=== PATIENT | male | born 1955 | race Caucasian/White ===

== ENCOUNTER 2020-09-30 09:57 | Outpatient (CLI) | payer OTHER, SELFPAY ==
[2020-09-30 10:58] LABS: Basophils Percent Auto 0.4 % (0.2-1.2); Eosinophils Absolute Auto 0.1 K/mm3 (0-0.3); Eosinophils Percent Auto 1.2 % (0-4.4); Hematocrit 46.6 % (42.0-52.0); Hemoglobin 15.3 g/dL (14.0-18.0); Immature Granulocyte Absolute 0.04 K/mm3 (0.00-0.031); Immature Granulocyte Percent A 0.5 % (0-0.5); Lymphocytes Absolute Auto 2.11 K/mm3 (0.9-3.2); Lymphocytes Percent Auto 27.8 % (18.3-44.2); Mean Corpuscular HGB Conc 32.8 g/dl (32-36); Mean Corpuscular Hemoglobin 30.3 pg (26-34); Mean Corpuscular Volume 92.3 fl (80-100); Mean Platelet Volume 9.7 fl (7.4-10.4); Monocytes Absolute Auto 0.8 K/mm3 (0.1-0.6); Monocytes Percent Auto 9.9 % (2.6-8.5); Neutrophils Absolute Auto 4.6 K/mm3 (1.3-6.7); Neutrophils Percent Auto 60.2 % (45.5-73.1); Platelet Count Result 237 k/mm3 (150-375); Red Blood Count 5.05 M/mm3 (4.6-6.20); Red Cell Distribution Width 12.6 % (11.5-14.5); White Blood Count 7.6 K/mm3 (4.5-10.0)
[2020-09-30 11:09] LABS: Albumin Level 4.6 g/dL (3.5-5.1); Anion Gap 8 mmol/L (8-16); Blood Urea Nitrogen 18 mg/dL (9-20); Calcium 9.7 mg/dL (8.4-10.2); Carbon Dioxide 27 mmol/L (22-30); Chloride 104 mmol/L (98-107); Estimated Glomerular Filt Rate > 60; Glucose 90 mg/dL (65-110); Potassium 4.8 mmol/L (3.4-5.0); Sodium 139 mmol/L (137-145)
[2020-09-30 11:22] LABS: Urine Cotinine NEGATIVE
[2020-09-30 12:43] LABS: Hemoglobin A1C 6.1 % (<5.7)
== END 2020-09-30 09:58 | disposition home or self-care (01) ==
PROVIDERS: PCP Family Medicine; Visit Provider Orthopaedic Surgery
DX: M17.11 Unilateral primary osteoarthritis, right knee (principal); Z01.818 Encounter for other preprocedural examination
CPT/HCPCS: 80048; 80307; 82040; 83036; 85025; 87070

== ENCOUNTER 2020-10-18 01:51 | Day surgery (SDC) | payer OTHER, SELFPAY ==
[2020-09-30 10:20] VITALS: BP 138/64; PULSE 62; RESP 20; TEMP 36.8; O2SAT 97; BMI 33.8
--- NOTE | 2020-10-15 11:42 | PM.IMHP ---
H&P: HPI History of Present Illness Date/Time: 10/15/20 11:42 65-year-old male patient of Dr. Paulino who presents today for a right total knee arthroplasty. Patient had his left knee replaced in 2010 and is doing very well for him. He has severe medial compartment arthritis in the right knee that is severely symptomatic on a daily basis. He is unable take anti-inflammatories because he also on Eliquis long-term for AFib. Patient has reached a point where he feels he would like to proceed with total knee arthroplasty rather continue any nonsurgical treatment of right knee. Chief Complaint: right knee DJD Review of Systems Review of Systems: All systems reviewed & are unremarkable except as noted in HPI and below PMFSH Family History Family History Mother Cerebrovascular accident Father Acute myocardial infarction Family history of chronic obstructive pulmonary disease Grandparent Cerebrovascular accident, Onset Age: 54 Sibling Family history of malignant neoplasm of ovary, Onset Age: 54 Other No family history of diabetes mellitus No family history of hypertension No family history of malignant neoplasm Social History Social History Smoking status: Never smoker Second hand tobacco smoke exposure: No Alcohol intake: never Substance use: never Substance use type: does not use Spiritual care concerns: No Meds Home Medications and Allergies Home Medications Medication Instructions Recorded Confirmed Type apixaban 5 mg tablet 5 mg PO BID #180 tablet 09/08/19 09/30/20 Rx atorvastatin 20 mg HS 09/30/20 09/30/20 History diltiazem HCl [Cartia XT] 180 mg QAM 09/30/20 09/30/20 History garlic 2,000 mg PO BID 09/30/20 09/30/20 History lisinopril 2.5 mg BID 09/30/20 09/30/20 History Allergies Allergy/AdvReac Type Severity Reaction Status Date / Time ezetimibe Allergy Unknown joint and Verified 09/30/20 10:14 muscle aches fexofenadine Allergy Unknown Hyper Verified 09/30/20 10:14 rosuvastatin Allergy Unknown Muscle Verified 09/30/20 10:14 aches simvastatin [Vytorin] Allergy Unknown joint and Verified 09/30/20 10:14 muscle aches Sulfa (Sulfonamide Allergy Unknown blister in Verified 09/30/20 10:14 Antibiotics) mouth SULFA AdvReac Unknown FLU SX AND Uncoded 09/30/20 10:14 FEVER BLISTERS Exam Narrative: 65-year-old male alert pleasant. He is 5 ft 8 and 229 lb. He has a moderate effusion right knee. Range of motion is from 10-90 degrees. He has posterior lateral pain with full flexion. He has moderate medial joint line tenderness to palpation. No instability in the knee. Hip range of motion is full without discomfort, negative Stinchfield maneuver. 2+ posterior tibial artery pulse. No dorsalis pedis pulse. No edema in the right lower extremity with normal sensation. Skin is all healthy. He has a visible varus deformity in the knee. Resp: Auscultation: clear to auscultation bilaterally Cardio: Rate: other Rhythm: regular rhythm Assessment and Plan Additional Plan 65-year-old male with [id number] arthritis in medial compartment of the right knee with rather severe symptoms on a daily basis. Again he is very happy with his left total knee arthroplasty and feels he is ready proceed with the right. Surgical procedure as well as the risks and complications were discussed in detail and all questions were answered we will proceed. He will see his primary care doctor pre-surgical clearance he has also seen his new patient escort and has been evaluated cleared for surgery without additional testing. He will stop his Eliquis 3 days prior to surgery. We will plan use low-dose Eliquis for 7 days postoperatively and then have the patient resume his normal dosing. His nasal swab was negative. Hemoglobin 15.3 and platelets 237. Chem panel creatinine is 1.
[2020-10-18] VITALS (15 sets, daily range): BP systolic 105–144; BP diastolic 57–82; PULSE 78–106; RESP 10–22; TEMP 36.2–37.2; O2SAT 93–100
--- NOTE | ~2020-10-18 | XR_ITS ---
EXAMINATION: XR knee RT 2V DATE: 10/18/2020 11:01 INDICATION: Total right knee arthroplasty. Postop. TECHNIQUE: 2 views of right knee were obtained. COMPARISON: None. FINDINGS: There is a total right knee arthroplasty with patellar resurfacing in near-anatomic alignme nt. No fracture. There is gas in the knee joint and soft tissues, consistent with recent surgery. IMPRESSION: 1. Total right knee arthroplasty in near-anatomic alignment. Reviewed, dictated and finalized at location B.
[2020-10-18] MEDS: ACETAMINOPHEN 500 MG TABLET 1000 MG PO ×3 (06:42→23:21)
[2020-10-18] MEDS: TRANEXAMIC ACID 1,000MG/ISO100 1,000 MG/100 ML BAG 200 MG IVPB (06:45)
--- NOTE | 2020-10-18 06:51 | P.PNAN_ITS ---
Anes - Initial Pre Proc Eval Procedure: Operation Date: 10/18/20 07:30 Proposed Procedures p Right Total Knee Arthroplasty - Maged Molina MD Date/Time: 10/18/20 06:52 Surgeon: Maged Molina MD Pre Op Diagnosis: OA right knee Patient Data Age: 65 Gender: M Height: 1.75 m Weight: 103.9 kg Last Vital Signs Temp 36.8 C 09/30/20 10:20 Pulse 62 09/30/20 10:20 Resp 20 09/30/20 10:20 BP 138/64 09/30/20 10:20 Pulse Ox 97 09/30/20 10:20 Allergies Allergy/AdvReac Type Severity Reaction Status Date / Time ezetimibe Allergy Unknown joint and Verified 09/30/20 10:14 muscle aches fexofenadine Allergy Unknown Hyper Verified 09/30/20 10:14 rosuvastatin Allergy Unknown Muscle Verified 09/30/20 10:14 aches simvastatin [Vytorin] Allergy Unknown joint and Verified 09/30/20 10:14 muscle aches Sulfa (Sulfonamide Allergy Unknown blister in Verified 09/30/20 10:14 Antibiotics) mouth SULFA AdvReac Unknown FLU SX AND Uncoded 09/30/20 10:14 FEVER BLISTERS Home Medications Medication Instructions Recorded Confirmed Type apixaban 5 mg tablet 5 mg PO BID #180 tablet 09/08/19 09/30/20 Rx atorvastatin 20 mg HS 09/30/20 09/30/20 History diltiazem HCl [Cartia XT] 180 mg QAM 09/30/20 09/30/20 History garlic 2,000 mg PO BID 09/30/20 09/30/20 History lisinopril 2.5 mg BID 09/30/20 09/30/20 History Patient hx anesthesia problems: none Family hx anesthesia problems: none PMFSH Past Medical History Medical History (Updated 10/18/20 @ 06:54 by Sukh Deleon MD) Calculus of kidney Essential (primary) hypertension Impaired fasting glucose Mixed hyperlipidemia Neural foraminal stenosis of cervical spine Obstructive sleep apnea, adult Unspecified atrial fibrillation Family History Family History Mother Cerebrovascular accident Father Acute myocardial infarction Family history of chronic obstructive pulmonary disease Grandparent Cerebrovascular accident, Onset Age: 54 Sibling Family history of malignant neoplasm of ovary, Onset Age: 54 Other No family history of diabetes mellitus No family history of hypertension No family history of malignant neoplasm Social History Social History Smoking status: Never smoker Second hand tobacco smoke exposure: No Alcohol intake: never Substance use: never Substance use type: does not use Living arrangements: with family Spiritual care concerns: No Anes - Eval Final PreProcedure Day of Procedure 10/18/20 06:52 Patient weight: obese Heart: regular rate and rhythm Lungs: clear to auscultation and normal air movement Airway: Mallampati scale class II Neurological: alert and oriented Last oral intake: >/= 8 hours ASA classification: III Emergent: no Anesthetic plan: proceed Anesthesia type and monitoring: general ETT Informed Consent: The patient's anesthetic plan and its attendant risks and benefits were discussed with the patient/family/POA. Questions were solicited and answers provided to the satisfaction of the patient/family/POA.
[2020-10-18] MEDS: LACTATED RINGERS 1,000 ML 30 ML IV CONT ×2 (06:54→11:05)
--- NOTE | 2020-10-18 07:17 | WPDHPUPDATE1 ---
History and Physical Update Update Date/Time: 10/18/20 07:17 History and Physical has been reviewed, including an updated exam of the patient. There are NO changes in the patient's condition. Risks, benefits, and alternatives have been discussed and questions answered. Patient agrees to proceed with procedure.
[2020-10-18] MEDS: ceFAZolin 2 GM/D5W 50 ML 2 GM/50 ML BAG IVPB (07:41)
[2020-10-18] MEDS: ceFAZolin SODIUM 1 GM VIAL 3 GM IRRIGATION (08:21)
[2020-10-18] MEDS: GENTAMICIN BONE CEMENT REFOBACIN 1 EACH TOPICAL (09:30)
[2020-10-18] MEDS: ceFAZolin SODIUM 1 GM VIAL IV PUSH (10:11)
--- NOTE | 2020-10-18 11:16 | W.PM.PROC2 ---
Procedure Note - Detailed Date of Procedure 10/18/20 Pre-op Diagnosis OA right knee Post-op Diagnosis same Procedure Performed Right total knee arthroplasty Surgeon Maged Molina MD Counter Hand Gabby Anesthesia general Indications Pain, deformity, stiffness Findings Same Description of Procedure Patient was brought to the operating room and general anesthesia was administered the right knee prepped draped usual fashion. Limb was exsanguinated tourniquet elevated to 275 mmHg. He received 2 g of Ancef weight based vancomycin 1 g of tranexamic is acid preoperatively. An 8 in longitudinal midline incision was used and a standard median parapatellar arthrotomy performed. Infrapatellar and suprapatellar fat pads were excised acquire some synovectomy carried out. The patella was arthritic. It measured 27 mm in thickness and was cut to 18 mm. A protector cap was applied the bone. Mild osteopenia noted. A guide sunny was inserted down the femoral canal after aspiration of canal contents and using the 5 degree valgus cutting bushing 9 mm of bone removed the distal femur was removed equal amounts both medially and laterally. Next the tibial plateau was cut making a skim cut from the low point of medial tibial plateau. This 1st cut removed about 10 a 0.5 mm from the lateral side as that did not reach the posterior medial defect satisfactorily. An additional 2 mm of bone removed. We took care not to release the lateral capsule from the lateral tibial plateau. In 90 degrees of flexion the medial side measured 10 mm the lateral side 14 mm. The femoral sizing guide was applied set at 5? of external rotation which matched Whitesides line. Posterior referencing pin holes were placed. The femur was cut to a size vanguard 70 which fit nicely line to line anterior to posterior with no overhang medial to lateral. The tibia was sized to a 75 period at the proper rotation the size 79 was going to overhang posterolaterally. The 75 was punched. Rotation was set referenced off the medial 1/3 of the tibial tubercle and the anterior cortex of the tibial plateau. Alignment was perpendicular to the axis of the tibia. We trialed and the size 12 insert him out to full extension with a negative bounce no plate medially but was a bit loose at 90?. The 13 was appropriate at 90? but had a bounce lacking full extension. An additional 1 mm of bone was removed the distal femur. Posterior femoral osteophytes removed. With this done the knee came out to full extension with a 13 insert with 1 mm medial opening and 2 mm of lateral opening in full extension. At 90? of flexion there was about 3 mm the in interior drawer with no medial opening and 1-2 mm of lateral opening. [place] flexion was to 135? no lift-off. The patella was sized to a 37 thin which reproduced the 27 mm thickness. Patellar tracking was excellent through range of motion even with the tourniquet elevated. Step drill was used to make multiple perforations in the tibial plateau and distal posterior femur. The bone was a little bit softer than what 1 usually sees in a 65-year-old male. The bony surfaces were thoroughly irrigated and dried. Using 2 batches of methylmethacrylate 1 containing the gentamicin powder, the cement was mixed applied to the tibial component and the femoral component cement applied the tibia pressurized and the size 75 tibia fully seated. Cement applied the femur and the size 70 femur fully seated and the knee brought into extension with a 13 mm 5 in 1 insert. The patellar button was then cemented. Tourniquet was released 115 minutes. Excess cement was sought for removed after cement hardening and hemostasis was achieved. We trialed with a 13 which had the same findings as above. Fourteen was inserted but was too tight with squeaking tightness with attempts at anterior drawer medially. The 13 insert was placed without difficulty and locking pin placed range of motion stability and p
[2020-10-18] MEDS: fentaNYL CITRATE INJ (*CRX) 100 MCG/2 ML VIAL 25 MCG IV PUSH ×4 (11:41→11:51)
[2020-10-18] MEDS: SODIUM CHLORIDE 0.9% IV 1,000 ML 125 ML IV CONT ×2 (12:54→23:20)
[2020-10-18] MEDS: oxyCODONE HCL (*CRX) 5 MG TAB IR PO ×3 (13:18→20:59)
--- NOTE | 2020-10-18 13:32 | PCOTNOTE ---
Attempted OT evaluation, completed prior level questions and bed mobility of sitting edge of bed, patient became dizzy and light headed and requested to return back to bed, assisted patient back to bed, unable to complete OT evaluation at this time. RN notified. Will follow and complete OT evaluation at later time.
--- NOTE | 2020-10-18 13:32 | PCPTNOTE ---
Attempted PT Eval. Pt reports he is nauseated and dizzy. Will attempt eval again tomorrow.
--- NOTE | 2020-10-18 15:11 | PM.IMCN ---
Assessment and Plan Assessment and plan (1) Obstructive sleep apnea, adult: Code(s): G47.33 - Obstructive sleep apnea (adult) (pediatric) Status: Acute Assessment and Plan: patient can use his home device or wear O2 NC as needed overnight VS monitoring Supportive monitoring (2) Atrial fibrillation: Code(s): I48.91 - Unspecified atrial fibrillation Status: Acute Assessment and Plan: Controlled at this time with HR 80-90s. No chest pain or SOB Ortho surgeon aware of patient Cardiac history and current meds, providing DVT propylaxis as such. Continue statin, Cartia, lisinopril. VS monitoring Supportive monitoring (3) Status post total right knee replacement: Code(s): Z96.651 - Presence of right artificial knee joint Status: Acute Assessment and Plan: 65-year-old male with [id number] arthritis in medial compartment of the right knee with rather severe symptoms on a daily basis. history of left total knee arthroplasty and no complications or concerns now. had pre-surgical clearance and childcare director clearance. Held Eliquis 3 days prior to surgery. Ortho plans use low-dose Eliquis for 7 days postoperatively and then have the patient resume his normal Eliquis dosing. nasal swab was negative. Hemoglobin 15.3 and platelets 237. Chem panel creatinine is 1.1 rest of Chem panel was within normal limits. (4) Elevated hemoglobin A1c: Code(s): R73.09 - Other abnormal glucose Status: Acute Assessment and Plan: his A1C recently went up from 5.7 to 6.1 when tested in September 2020. no diabetes medications at home, understands that his glucose levels can be improved through dietary changes. No SSI orders at this time, as his glucose level was 90 at testing last month in September. Will evaluate his glucose level with morning labs on BMP. Currently on regular diet, but if glucose levels elevate, then consider switching to Diabetic Diet. Keep glucose levels well controlled for best wound and surgical healing. Additional Plan HPI Data of Consult Consult date: 10/18/20 Requesting Physician: Maged Molina MD Primary Care Provider: Tuan Paulino MD Consult Narrative Narrative: Agustín Rosado is a 65 year old male who presented today for a pre-planned right total knee arthroplasty by Dr. Molina. His left knee was replaced in 2010 and he denies any complaints. His surgery went well this morning with minimal to no blood loss. He is tolerating orals and tolerated liquid diet for breakfast and lunch. Denies Nausea or vomiting. Denies chest pain, SOB, abdominal pain or pressure at this time. Extremity pulses intact. Pain is currently controlled with pain regime that Ortho surgeon has in place. Prior to today's procedure, Agustín did hold his garlic supplements and Eliquis per Orthopedic surgeons instructions. No s/s of bleeding per examination of wound at this time. The Silvadene OR dressing remains occlusive, no drainage or bleeding noted, minimal swelling noted, and no redness noted. Agustín had a recent ECHO and follow up visit with his Race Relations Professor in the last 2-3 months, had no new findings or concerns. He has chronic AFib but doesn't know or feel it per patient report. His HR has been 87-94 on vital signs, BP 135/72, and RR 16 on room air. Continue Incentive Spirometer. Ordered Strict I/O's. He stated that his A1C recently went up from 5.7 to 6.1 when tested in September 2020. He does not take any diabetes medications at home, but understands that his glucose levels can be improved through dietary changes. No SSI orders at this time, as his glucose level was 90 at testing last month in September. Will evaluate his glucose level with morning labs on BMP. Currently on regular diet, but if glucose levels elevate, then consider switching to Diabetic Diet. Discussed his chronic back pain history over recent years. Offered patient frequent repositioning, heating pad, and pain medications or
[2020-10-18] MEDS: ONDANSETRON INJ 4 MG/2 ML VIAL IV PUSH (17:17)
[2020-10-18] MEDS: SENNA/DOCUSATE SODIUM TABLET 2 TAB PO (17:26)
[2020-10-18] MEDS: APIXABAN 2.5 MG TABLET PO (20:59)
[2020-10-18] MEDS: ATORVASTATIN 20 MG TABLET BY MOUTH (20:59)
[2020-10-18] MEDS: FAMOTIDINE 20 MG TABLET PO (20:59)
[2020-10-19] VITALS: PULSE 88
[2020-10-19] MEDS: oxyCODONE HCL (*CRX) 5 MG TAB IR PO ×4 (00:33→14:29)
[2020-10-19 00:42] VITALS: BP 104/58; PULSE 78; RESP 16; TEMP 37.2; O2SAT 98
[2020-10-19 04:00] VITALS: PULSE 65
[2020-10-19] MEDS: ACETAMINOPHEN 500 MG TABLET 1000 MG PO ×2 (05:18→14:29)
[2020-10-19 05:46] LABS: Basophils Percent Auto 0.2 % (0.2-1.2); Hematocrit 36.3 % (42.0-52.0); Hemoglobin 11.6 g/dL (14.0-18.0); Immature Granulocyte Percent A 0.8 % (0-0.5); Lymphocytes Absolute Auto 0.93 K/mm3 (0.9-3.2); Lymphocytes Percent Auto 7.2 % (18.3-44.2); Mean Corpuscular Hemoglobin 30.4 pg (26-34); Mean Corpuscular Volume 95.3 fl (80-100); Mean Platelet Volume 9.9 fl (7.4-10.4); Monocytes Absolute Auto 1.2 K/mm3 (0.1-0.6); Neutrophils Absolute Auto 10.6 K/mm3 (1.3-6.7); Neutrophils Percent Auto 82.8 % (45.5-73.1); Platelet Count Result 220 k/mm3 (150-375); Red Blood Count 3.81 M/mm3 (4.6-6.20); White Blood Count 12.8 K/mm3 (4.5-10.0)
[2020-10-19 05:58] LABS: Anion Gap 7 mmol/L (8-16); Blood Urea Nitrogen 18 mg/dL (9-20); Calcium 8.3 mg/dL (8.4-10.2); Carbon Dioxide 23 mmol/L (22-30); Chloride 104 mmol/L (98-107); Estimated CRCL calculation 72 ml/min; Estimated Glomerular Filt Rate > 60; Glucose 117 mg/dL (65-110); Potassium 4.7 mmol/L (3.4-5.0); Sodium 134 mmol/L (137-145)
[2020-10-19 06:00] VITALS: BP 112/60; PULSE 77; RESP 18; TEMP 36.8; O2SAT 99
--- NOTE | 2020-10-19 06:24 | PM.PNORT ---
Progress Note: A&P Additional Plan Postop day 1, patient is alert awake. Pain is overall well controlled. He has been bed to the restroom overnight. He did not work with physical therapy yesterday due to nausea following general anesthesia. He is feeling much better this morning having no nausea. His dressing is dry. Neurovascular is intact. Has minimal swelling in the knee itself. His labs are all stable and noted. We will plan to have patient work with physical therapy this morning and he is comfortable is overall asymptomatic from the nausea as well as pain being well controlled we will discharge him home. If he does not feel he is doing well with physical therapy after morning session he will stick around into the afternoon session. Subjective Subjective Date/Time Seen: 10/19/20 06:24 Objective Data Vital Signs Vital Signs: Vital Signs - 24 hr 10/18/20 06:30 10/18/20 11:05 10/18/20 11:20 Temperature 36.7 C 37.2 C Pulse Rate 79 78 88 Respiratory Rate 18 22 H 22 H Blood Pressure 140/82 105/59 L 123/60 Pulse Oximetry 100 99 100 10/18/20 11:35 10/18/20 11:50 10/18/20 12:05 Temperature 36.4 C L Pulse Rate 89 84 90 Respiratory Rate 16 16 10 L Blood Pressure 129/64 120/74 123/77 Pulse Oximetry 100 96 98 10/18/20 12:20 10/18/20 12:45 10/18/20 13:00 Temperature 36.4 C L 36.2 C L 36.5 C Pulse Rate 86 88 87 Respiratory Rate 11 L 14 14 Blood Pressure 131/66 144/65 H 139/65 Pulse Oximetry 97 96 94 10/18/20 13:30 10/18/20 14:30 10/18/20 16:00 Temperature 36.2 C L 36.6 C Pulse Rate 83 94 106 H Respiratory Rate 14 16 Blood Pressure 129/69 135/72 Pulse Oximetry 93 96 10/18/20 18:30 10/18/20 20:00 10/18/20 22:00 Temperature 36.5 C 36.9 C Pulse Rate 87 78 78 Respiratory Rate 14 18 Blood Pressure 121/57 L 107/61 Pulse Oximetry 93 98 10/19/20 00:00 10/19/20 00:42 10/19/20 04:00 Temperature 37.2 C Pulse Rate 88 78 65 Respiratory Rate 16 Blood Pressure 104/58 L Pulse Oximetry 98 Intake/Output Intake/Output: Intake & Output 10/16/20 10/17/20 10/18/20 10/19/20 23:59 23:59 23:59 23:59 Intake Total 2800 Balance 2800 Meds/Results Medications: Active Medications Generic Name Dose Route Start Last Admin Trade Name Freq PRN Reason Stop Dose Admin Acetaminophen 1,000 mg 10/18/20 18:00 10/19/20 05:18 Acetaminophen 500 Mg Tablet PO 1,000 mg Q6H WILY Administration Apixaban 2.5 mg 10/18/20 21:00 10/18/20 20:59 Apixaban 2.5 Mg Tablet PO 10/30/20 09:01 2.5 mg Q12HR WILY Administration Atorvastatin Calcium 20 mg 10/18/20 21:00 10/18/20 20:59 Atorvastatin 20 Mg Tablet BY MOUTH 20 mg HS WILY Administration Bisacodyl 10 mg 10/18/20 12:29 Bisacodyl 10 Mg Suppository RECTAL DAILY PRN Constipation Diltiazem HCl 180 mg 10/19/20 09:00 Diltiazem Hcl Cd 180 Mg Cap.Er.24h PO QAM WILY Diphenhydramine HCl 25 mg 10/18/20 12:29 Diphenhydramine Hcl Inj 50 Mg/Ml Vial IV PUSH Q6H PRN Itching Famotidine 20 mg 10/18/20 21:00 10/18/20 20:59 Famotidine 20 Mg Tablet PO 20 mg Q12HR WILY Administration Vancomycin HCl 1,000 mg in 250 mls @ 250 mls/hr 10/18/20 19:00 10/18/20 19:43 Vancomycin 1,000 Mg/D5w 250 Ml IVPB 10/19/20 07:59 Infused Q12H WILY Infusion Cefazolin Sodium 1 gm in 50 mls @ 100 mls/hr 10/18/20 16:00 10/18/20 23:53 Ancef 1 Gm/D5w 50 Ml Pm IVPB 10/19/20 08:29 Infused Q8H WILY Infusion Morphine Sulfate 2 mg 10/18/20 12:29 Morphine Sulfate (*Crx) 2 Mg/Ml Inj IV PUSH Q4H PRN Pain Rated 7-10 Naloxone HCl 0.1 mg 10/18/20 12:29 Naloxone Hcl 0.4 Mg/Ml Vial IV PUSH Q2M PRN Opiate Reversal Ondansetron HCl 4 mg 10/18/20 12:29 10/18/20 17:17 Ondansetron Inj 4 Mg/2 Ml Vial IV PUSH 4 mg Q4H PRN Administration Nausea And Vomiting Oxycodone HCl 5 mg 10/18/20 13:00 10/19/20 05:18 Oxycodone Hcl (*Crx) 5 Mg Tab Ir PO 5 mg Q4H SC
--- NOTE | 2020-10-19 06:30 | PM.DS ---
DS: Admitting Diagnosis Admitting Diagnosis right knee DJD DS: Summary Hospital Course Hospital Course: stable Time Spent with Patient Time attestation: Total time spent providing and/or coordinating discharge services: 64-year-old male who underwent right total knee arthroplasty on 10/18. Under procedure and complications postop he has been afebrile vital signs been stable. He had quite a bit of nausea the day of surgery and was unable to work with physical therapy. Nausea has subsequently passed. Postop day 1 morning he was feeling good having no nausea. Hemoglobin is 11.6 and platelets 220. He is on low-dose Eliquis 2.5 mg b.i.d. for 1 week and then resume his normal Eliquis dosing of 5 mg. Pain is well controlled with scheduled Tylenol as well as oxycodone 5 mg. He is allergic to sulfa therefore not using Celebrex on him. He is weight-bearing as tolerated. He will be discharged home on 10/19 patient was advised to keep leg elevated at home prevent swelling but to exercise on a regular basis. He will also go home on Senokot and MiraLax. His outpatient therapy starting later this week. He was advised any questions or concerns when he goes home he is to call the office otherwise we will see him at this appointed dates DS: Data Data Completed and Pending Labs on day of discharge: Labs from last 24 hours 10/19/20 10/19/20 10/19/20 04:45 04:44 04:44 WBC 12.8 H RBC 3.81 L Hgb 11.6 L D Hct 36.3 L MCV 95.3 MCH 30.4 MCHC 32.0 RDW 13.0 Plt Count 220 MPV 9.9 Immature Gran % (Auto) 0.8 H Neut % (Auto) 82.8 H Lymph % (Auto) 7.2 L Nelson % (Auto) 9.0 H Eos % (Auto) 0.0 Baso % (Auto) 0.2 Lymph # (Auto) 0.93 Nelson # (Auto) 1.2 H Eos # (Auto) 0.0 Baso # (Auto) 0.0 Abs Immat Gran (auto) 0.10 H Absolute Neuts (auto) 10.6 H Absolute Nucleated RBC 0.0 Nucleated RBC % 0.0 Sodium 134 L Potassium 4.7 Chloride 104 Carbon Dioxide 23 Anion Gap 7 L BUN 18 Creatinine 1.10 Estim Creat Clear Calc 72 Estimated GFR > 60 Glucose 117 H Calcium 8.3 L Vitamin D 25-Hydroxy Pending Blood Type Antibody Screen 10/18/20 06:59 WBC RBC Hgb Hct MCV MCH MCHC RDW Plt Count MPV Immature Gran % (Auto) Neut % (Auto) Lymph % (Auto) Nelson % (Auto) Eos % (Auto) Baso % (Auto) Lymph # (Auto) Nelson # (Auto) Eos # (Auto) Baso # (Auto) Abs Immat Gran (auto) Absolute Neuts (auto) Absolute Nucleated RBC Nucleated RBC % Sodium Potassium Chloride Carbon Dioxide Anion Gap BUN Creatinine Estim Creat Clear Calc Estimated GFR Glucose Calcium Vitamin D 25-Hydroxy Blood Type A Positive Antibody Screen Negative Discharge Plan Discharge Patient Disposition: Home, Self-Care Discharge Instructions: MAGED MOLINA M.D [facility], [place] [address] [place] [address] POST-OPERATIVE DISCHARGE INSTRUCTIONS TOTAL KNEE ARTHROPLASTY 1. When resting, lie on back with leg elevated above hear to minimize swelling. Significant swelling could indicate a blood clot and if this occurs call the office (or go to the ER) to have a venous ultrasound. 2. Do exercise 5 times a day. 3. Do not sit with leg down except for meals. 4. Wound Care: Nursing will give additional dressings at discharge. Patient to change dressing at home 1 week from surgery, then maintain until seen in office. 5. May shower with dressing in place. 6. Follow weight bearing status instructions. Patient Instructions: Apixaban (By mouth), Precautions after Total Joint Replacement Surgery (ED) Follow-up/Referrals: Maged Molina MD [Physician] - Keep Reg. Scheduled Appt. Discharge Medications: New polyethylene glycol 3350 [Miralax] 17 gram Powder In Packet 17 g PO QAM Qty: 30 RF: 0 sennosides-docusate sodium [Senokot-S] 8.6-50 mg Tablet
[2020-10-19 07:07] LABS: Vitamin D 25 Hydroxy 26.1 ng/mL
--- NOTE | 2020-10-19 08:00 | PCOTNOTE ---
Attempted to see patient this am, however patient respectfully declined stating, No, I'm good. I've had a knee replacement before. I already have some shorts on, and until I get rid of all this stuff. I know how to use the walker, so I'm good.
--- NOTE | 2020-10-19 08:24 | P.PNAN_ITS ---
Anes - Prog Note Post-Op Date/Time: 10/19/20 08:24 Cardiovascular status: normal Respiratory status: normal Airway patency: baseline Mental status: baseline Post-Op hydration status: normal Vital Signs: Last Vital Signs Temp 36.8 C 10/19/20 06:00 Pulse 77 10/19/20 06:00 Resp 18 10/19/20 06:00 BP 112/60 10/19/20 06:00 Pulse Ox 99 10/19/20 06:00 Pain Score (VAS): 0 I/O: Intake & Output 10/18/20 10/19/20 10/19/20 23:59 07:59 15:59 Intake Total 1590 300 Output Total 600 Balance 1590 -300 Laboratory Tests 10/19/20 04:44 10/19/20 04:45 10/19/20 10/19/20 10/19/20 04:44 04:44 04:45 WBC 12.8 H RBC 3.81 L Hgb 11.6 L D Hct 36.3 L MCV 95.3 MCH 30.4 MCHC 32.0 RDW 13.0 Plt Count 220 MPV 9.9 Immature Gran % (Auto) 0.8 H Neut % (Auto) 82.8 H Lymph % (Auto) 7.2 L [place] % (Auto) 9.0 H Eos % (Auto) 0.0 Baso % (Auto) 0.2 Lymph # (Auto) 0.93 [place] # (Auto) 1.2 H Eos # (Auto) 0.0 Baso # (Auto) 0.0 Abs Immat Gran (auto) 0.10 H Absolute Neuts (auto) 10.6 H Absolute Nucleated RBC 0.0 Nucleated RBC % 0.0 Sodium 134 L Potassium 4.7 Chloride 104 Carbon Dioxide 23 Anion Gap 7 L BUN 18 Creatinine 1.10 Estim Creat Clear Calc 72 Estimated GFR > 60 Glucose 117 H Calcium 8.3 L Vitamin D 25-Hydroxy 26.1 Post-procedural complaints: none Patient Feedback: Patient satisfied with anesthetic care.
[2020-10-19] MEDS: SENNA/DOCUSATE SODIUM TABLET 2 TAB PO (09:51)
[2020-10-19] MEDS: FAMOTIDINE 20 MG TABLET PO (09:52)
[2020-10-19] MEDS: dilTIAZem HCL CD 180 MG CAP.ER.24H PO (09:52)
[2020-10-19] MEDS: APIXABAN 2.5 MG TABLET PO (09:52)
[2020-10-19 10:30] VITALS: BP 107/64; PULSE 68; RESP 16; TEMP 36.9; O2SAT 95
--- NOTE | 2020-10-19 11:06 | PM.IMPN ---
Progress Note: A&P Assessment and Plan (1) Status post total right knee replacement: Code(s): Z96.651 - Presence of right artificial knee joint Status: Acute Assessment and Plan: Underwent right total knee arthroplasty on 10/18/[address] Molina. Tolerated the procedure well. Pain is well controlled. Management per Orthopedic surgery Planning for discharge today. Follow-up with Orthopedic surgery as an outpatient (2) Obstructive sleep apnea, adult: Code(s): G47.33 - Obstructive sleep apnea (adult) (pediatric) Status: Acute Assessment and Plan: Continue with CPAP (3) Atrial fibrillation: Code(s): I48.91 - Unspecified atrial fibrillation Status: Acute Assessment and Plan: Rate is well controlled Continue Eliquis. Ortho plans to use low-dose Eliquis postoperatively for 7 days, and then he will resume his typical 5 mg PO bid. Continue diltiazem (4) Elevated hemoglobin A1c: Code(s): R73.09 - Other abnormal glucose Status: Acute Assessment and Plan: A1c is 6.1. Discussed lifestyle changes including diet and exercise Follow up with PCP for further monitoring Additional Plan Discussed use of Miralax and Colace postoperatively Planning for discharge today. Will sign off. Thank you for allowing me to be involved in this patients care. Please call if any questions arise. Subjective Date/time seen: 10/19/20 11:06 Interval history: Date of service: 10/19/2020 Agustín Rosado is a 65-year-old male with history hypertension, hyperlipidemia, ION, atrial fibrillation on chronic anticoagulation, and prediabetes who is seen in follow-up after right total knee replacement. He is feeling well. He tolerated the procedure well and his pain is well controlled. He reports very mild discomfort in the right knee that he rates as 1/10 at rest. He was up today with therapy, stated his pain at about a 5/10. He was having some nausea and vomiting yesterday postoperatively with today denies nausea or vomiting and is tolerating a regular diet. He is passing flatus but has not had a bowel movement. Denies abdominal pain, cramping, bloating. He is urinating without difficulty. No fevers or chills. Denies increased swelling in his lower extremities. No numbness or tingling in the bilateral lower extremities. 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 He plans to go home today. He lives with his at home who will be able to assist him as needed. He has approximately 2 steps to go to get into his house. He has plans for follow-up with Dr. Molina. Review of Systems Review of Systems: All systems reviewed & are unremarkable except as noted in HPI and below Exam Narrative: Mr. Rosado is a well-nourished, well-appearing 65-year-old male who is lying supine in bed. He appears comfortable and is in NARD. Neuro: awake, alert and oriented x4, speech clear, no focal neuro deficits noted HEENMT: normocephalic, atraumatic, EOMI, sclerae anicteric, moist oral mucosa Neck: supple, no lymphadenopathy Respiratory: clear to auscultation bilaterally, nonlabored breathing Cardio: regular rate, regular rhythm with S1-S2 Abdomen: nondistended, normoactive bowel sounds, soft, nontender to palpation Extremities: Right knee covered with bandage that is c/d/i, right thigh mildly tender to palpation. Bilateral calves without edema erythema or tenderness to palpation. Neurovascularly intact. Able to wiggle toes bilaterally. DP pulses 2+ bilaterally Skin: no rashes or lesions, warm and dry Psych: appropriate mood and affect, judgment and insight intact Objective Data Vital Signs Vital Signs: Vital Signs - 24 hr 10/18/20 11:20 10/18/20 11:35 10/18/20 11:50 Temperature Pulse Rate 88 89 84 Respiratory Rate 22 H 16 16 Blood Pressure 123/60 129/64 120/74 Pulse Oximetry 100 100 96
--- NOTE | 2020-10-19 12:47 | PCOTNOTE ---
Attempted to see patient this PM after AM refusal. Respectfully declined OT services this date stating Oh dear, I told the other gal that I am alright, I've been through this all before. No thank you.
== END 2020-10-19 14:36 | disposition home or self-care (01) ==
LOC: ANHSURGERY 06:09 → ANH2MED 12:35
PROVIDERS: Physician Assistant Surgical; PCP Family Medicine; Visit Provider Orthopaedic Surgery
PROC: (CPT 27447; principal; 2020-10-18 07:30)
DX: M17.11 Unilateral primary osteoarthritis, right knee (principal); R73.09 Other abnormal glucose; I10 Essential (primary) hypertension; E78.2 Mixed hyperlipidemia; G47.33 Obstructive sleep apnea (adult) (pediatric); I48.91 Unspecified atrial fibrillation; Z79.01 Long term (current) use of anticoagulants; E66.9 Obesity, unspecified; Z68.33 Body mass index [BMI] 33.0-33.9, adult
CPT/HCPCS: 27447; 36415; 73560; 80048; 80307; 82040; 82306; 83036; 85025; 86850; 86900; 86901; 87070; 97116; 97161; 97165; A9270; C1713; C1776; J0171; J0690; J1170; J1885; J2250; J2270; J2405; J2795; J3010; J3370; J7030; J7120

== ENCOUNTER 2022-10-10 10:48 | Emergency (ER) | payer MEDICARE, SELFPAY ==
--- NOTE | ~2022-10-10 | XR_ITS ---
Portable chest x-ray Comparison: 09/27/2016 Clinical History: Chest pain Findings: Lungs are clear, without focal consolidation or pleural effusion. Cardiomediastinal silho uette is stable. Bones and soft tissues are unremarkable. Impression: Normal chest. Reviewed, dictated and finalized at location . Impression: Normal chest.
[2022-10-10 10:49] VITALS: BP 108/70; PULSE 106; RESP 17; TEMP 36.2; O2SAT 99
--- NOTE | 2022-10-10 10:49 | ECG_ITS ---
Measurements Intervals [place] Rate: 113 P: [place]: 0 QRS: -31 QRSD: 100 T: 6 QT: 312 QTc: 429 Interpretive Statements ATRIAL FIBRILLATION WITH RAPID VENTRICULAR RESPONSE MARKED LEFT AXIS DEVIATION [QRS AXIS < -30] POOR R-WAVE PROGRESSION ABNORMAL ECG ] NO PREVIOUS ECG AVAILABLE FOR COMPARISON Electronically Signed On 10-10-2022 13:24:47 CDT by Fish Hoyos M.D.
[2022-10-10 11:05] LABS: Basophils Percent Auto 0.3 % (0.2-1.2); Eosinophils Absolute Auto 0.1 K/mm3 (0-0.3); Hematocrit 48.4 % (42.0-52.0); Immature Granulocyte Absolute 0.07 K/mm3 (0.00-0.031); Immature Granulocyte Percent A 0.7 % (0-0.5); Lymphocytes Absolute Auto 3.06 K/mm3 (0.9-3.2); Lymphocytes Percent Auto 30.7 % (18.3-44.2); Mean Corpuscular HGB Conc 33.1 g/dl (32-36); Mean Corpuscular Hemoglobin 30.5 pg (26-34); Mean Corpuscular Volume 92.4 fl (80-100); Mean Platelet Volume 9.5 fl (7.4-10.4); Monocytes Percent Auto 10.1 % (2.6-8.5); Neutrophils Absolute Auto 5.7 K/mm3 (1.3-6.7); Neutrophils Percent Auto 57.2 % (45.5-73.1); Platelet Count Result 299 k/mm3 (150-375); Red Blood Count 5.24 M/mm3 (4.6-6.20); Red Cell Distribution Width 12.6 % (11.5-14.5)
[2022-10-10 11:16] LABS: INR 1.1; Partial Thromboplastin Time 29.9 SECONDS (22.3-36.8); Prothrombin Time 14.9 Seconds (11.1-14.7)
[2022-10-10 11:17] LABS: Alanine Aminotransferase 31 U/L (6-50); Albumin Level 4.8 g/dL (3.5-5.1); Alkaline Phosphatase 87 U/L (38-126); Anion Gap 7 mmol/L (8-16); Aspartate Amino Transferase 31 U/L (17-59); Bilirubin,Total 0.9 mg/dL (0.2-1.3); Blood Urea Nitrogen 21 mg/dL (9-20); Calcium 9.3 mg/dL (8.4-10.2); Carbon Dioxide 28 mmol/L (22-30); Chloride 103 mmol/L (98-107); Estimated CRCL calculation 59 ml/min; Estimated Glomerular Filt Rate 55; Glucose 125 mg/dL (65-110); Lipase 64 U/L (23-300); Potassium 3.9 mmol/L (3.4-5.0); Sodium 138 mmol/L (137-145)
[2022-10-10 11:28] LABS: Troponin I < 0.012 ng/mL (0.000-0.034)
--- NOTE | 2022-10-10 13:03 | ED.CHESTPAIN ---
HPI - Chest Pain General Chief Complaint: Chest Pain Stated Complaint: chest pains Time Seen by Provider: 10/10/22 12:29 History of Present Illness HPI narrative: Patient is a 67-year-old male with a history of A-fib on Eliquis, hyperlipidemia, hypertension presenting with chest pain. Patient states that he has had intermittent left-sided chest pain for approximately the last week. States that it feels like sharp stabbing pains that come and go. Denies exertional component. States he recently saw his PCP started him on Lasix due to ankle swelling. States that the swelling has improved. Denies worsening shortness of breath or lightheadedness. No focal numbness or weakness. No vomiting or diarrhea. Currently he denies complaints. Related Data Home Medications Medication Instructions Recorded Confirmed garlic 2,000 mg capsule 2,000 mg PO BID 09/30/20 05/04/22 cholecalciferol (vitamin D3) 50 50 mcg PO DAILY 12/02/21 05/04/22 mcg (2,000 unit) capsule Allergies Allergy/AdvReac Type Severity Reaction Status Date / Time ezetimibe Allergy Unknown joint and Verified 05/04/22 10:03 muscle aches fexofenadine Allergy Unknown Hyper Verified 05/04/22 10:03 rosuvastatin Allergy Unknown Muscle Verified 05/04/22 10:03 aches simvastatin [Vytorin] Allergy Unknown joint and Verified 05/04/22 10:03 muscle aches Sulfa (Sulfonamide Allergy Unknown blister in Verified 05/04/22 10:03 Antibiotics) mouth,flu sxs, fever blisters Review of Systems Review of Systems: All systems reviewed & are unremarkable except as noted in HPI and below PMFSH Past Medical History Medical History Calculus of kidney Essential (primary) hypertension Impaired fasting glucose Mixed hyperlipidemia Neural foraminal stenosis of cervical spine Obstructive sleep apnea, adult Unspecified atrial fibrillation Family History Family History Mother Cerebrovascular accident Father Acute myocardial infarction Family history of chronic obstructive pulmonary disease Grandparent Cerebrovascular accident, Onset Age: 54 Sibling Family history of malignant neoplasm of ovary, Onset Age: 54 Other No family history of diabetes mellitus No family history of hypertension No family history of malignant neoplasm Social History Social History Smoking status: Never smoker Second hand tobacco smoke exposure: No Alcohol intake: never Substance use: never Substance use type: does not use Lack of Transportation: No Lack of Food: Never True Current Housing: I Have Housing Concerned About Future Housing: No Difficulty Paying Gas/Electric Bills: No Difficulty Paying for Meds: No Currently Unemployed: No Education: Trade/Vocational Certificate Difficulty w/ Childcare or Family Care: No Living arrangements: with family Additional living arrangements comments: lives with Gender identity (if verbalized by the patient): Male Spiritual care concerns: No Exam Narrative: GENERAL: Well-appearing, well-nourished, and in no acute distress. HEAD: Normocephalic, atraumatic. EYES: PERRLA and EOMI. ENT: Nares clear, no rhinorrhea or epistaxis. Mucous membranes moist. NECK: Supple. CHEST: Clear to auscultation. No respiratory distress. HEART: Regular rate, irregular rhythm ABDOMEN: Soft, nontender, nondistended EXTREMITIES: Normal range of motion. No edema. SKIN: Warm, dry, no rash. NEURO: No focal deficits. Alert and oriented x3. PSYCH: Normal mood and affect. Course Vital Signs Vital signs: Vital Signs Temperature 97.1 F L 10/10/22 10:49 Pulse Rate 106 H 10/10/22 10:49 Respiratory Rate 17 10/10/22 10:49 Blood Pressure 108/70 10/10/22 10:49 Pulse Oximetry 99 10/10/22 10:49 Oxygen Delivery Room
[2022-10-10 13:50] LABS: Troponin I < 0.012 ng/mL (0.000-0.034)
[2022-10-10 14:14] VITALS: BP 117/87; PULSE 90; RESP 18; O2SAT 100
== END 2022-10-10 14:14 | disposition home or self-care (01) ==
PROVIDERS: Emergency Medicine; Emergency Provider Emergency Medicine; PCP Emergency Medicine
DX: I48.91 Unspecified atrial fibrillation (principal); R07.89 Other chest pain; I10 Essential (primary) hypertension; E78.5 Hyperlipidemia, unspecified; G47.30 Sleep apnea, unspecified; Z87.442 Personal history of urinary calculi
CPT/HCPCS: 36415; 71045; 80053; 83690; 84484; 85025; 85610; 85730; 93005; 99284

== ENCOUNTER 2023-01-31 08:44 | Outpatient (CLI) | payer MEDICARE, SELFPAY ==
[2023-02-19 19:44] VITALS: BMI 31.1
--- NOTE | 2023-02-19 19:44 | WPDHOMESLEEP ---
Sleep Study - Home Unattended Date of Study: 01/31/23 Ordering Provider: Melanie Augustin DO Interpreting Provider: Melanie Augustin DO Home Sleep Study Type: Watch PAT Height: 1.78 m Weight: 98.43 kg Body Mass Index: 31.1 Neck Circumference (inches): 17.5 [place]: 2 Reason for Sleep Study Abnormal nocturnal oximetry Sleep History The patient is a 67-year-old male with atrial fibrillation, hyperlipidemia, hypertension and neural foraminal stenosis of cervical spine that had a sleep study ordered for evaluation of sleep apnea after having an abnormal nocturnal oximetry. The patient denies awakening from sleep short of breath. He rarely awakens at night with heartburn, belching or cough. He occasionally snores but it is rarely loud enough that others complain. He rarely has trouble sleeping when he has a cold. He denies waking up gasping for air throughout the night. He denies having breathing problems at night observed by himself or others. He denies sweating excessively at night. He rarely has heart palpitations or irregular heartbeats during the night. He denies falling asleep during the day and while driving. He denies sleep paralysis and cataplexy. He denies having trouble at school or work due to sleepiness. He rarely experiences vivid dreamlike scenes upon awakening or falling asleep. He denies feeling afraid of going to sleep. He rarely has nightmares. He occasionally remembers his dreams. He occasionally has thoughts racing through his mind. He denies feeling sad or depressed. He rarely has anxiety. He denies having muscular tension. He denies noticing parts of his body jerk. He denies kicking during the night. He occasionally has crawling and aching feelings in his legs and occasionally has leg pain during the night. He denies grinding his teeth during sleep and denies awakening with morning jaw pain. He is frequently bothered by pain during the day and occasionally awakened by pain during the night. He denies waking up feeling stiff in the morning. He denies waking up with sore or achy muscles. He occasionally wakes up with pain in the neck, spine or other joints. He goes to bed at 9:00 p.m. on both weekdays and weekends. It takes him less than 5-10 minutes to fall asleep. He wakes up 1-2 times throughout the night to urinate but is able to fall back asleep within 10 minutes. He wakes up at 5:00 a.m. on every day except Sunday which would be at 7:00 a.m.. He typically gets 7-8.5 hours of sleep per night. He will stay in bed for 10-15 minutes after waking up. He currently lives with his . He denies consuming any caffeinated beverages within 2 hours of bedtime. He denies engaging in physical exercise before bedtime. He denies reading before falling asleep but will watch television. He denies taking naps in afternoon evening. He consumes 2-3 caffeinated beverages per day. He denies tobacco, alcohol and recreational drug use. [facility] Past Medical History Medical History Calculus of kidney Essential (primary) hypertension Impaired fasting glucose Mixed hyperlipidemia Neural foraminal stenosis of cervical spine Obstructive sleep apnea, adult Unspecified atrial fibrillation Family History Family History Mother Cerebrovascular accident Father Acute myocardial infarction Family history of chronic obstructive pulmonary disease Grandparent Cerebrovascular accident, Onset Age: 54 Sibling Family history of malignant neoplasm of ovary, Onset Age: 54 Other No family history of diabetes mellitus No family history of hypertension No family history of malignant neoplasm Social History Social History Smoking status: Never smoker Second hand tobacco smoke exposure: No Alcohol intake: never Substance use: never [place]
== END 2023-02-16 07:00 | disposition home or self-care (01) ==
LOC: ANHCSM 08:44
PROVIDERS: PCP Emergency Medicine; Visit Provider Family Medicine
DX: G47.37 Central sleep apnea in conditions classified elsewhere (principal); G47.33 Obstructive sleep apnea (adult) (pediatric)
CPT/HCPCS: 95800

== ENCOUNTER 2024-01-14 07:58 | Outpatient (CLI) | payer MEDICARE, SELFPAY ==
--- NOTE | ~2024-01-14 | XR_ITS ---
XR abdomen/kub 1V Ordering provider: Daryn Deleon MD History: . CALCULUS OF KIDNEY . Comparison: None. FINDINGS: BOWEL: Nonobstructive bowel gas pattern. ORGANOMEGALY: None. SIGNIFICANT PATHOLOGIC CALCIFICATIONS: Multiple left kidney stones. Multiple right kidney stones. OTHER: No free air is seen under the diaphragm. Degenerative changes of the spine. Left sacroiliitis. IMPRESSION: NO ACUTE ABDOMINAL FINDINGS. Bilateral kidney stones. Reviewed, dictated and finalized at location A. [employer]ER
== END 2024-01-14 07:59 | disposition home or self-care (01) ==
LOC: GOSHIMG 08:00
PROVIDERS: PCP Internal Medicine; Visit Provider Urology
DX: N20.0 Calculus of kidney (principal)
CPT/HCPCS: 74018

== ENCOUNTER 2024-04-21 15:45 | Outpatient (RCR) | payer MEDICARE, SELFPAY ==
--- NOTE | 2024-02-13 16:08 | OPREHPOC ---
Outpatient Therapy Plan of Care This is a Multidisciplinary Plan of Care that may contain components documented by all disciplines (PT, OT, and ST.) PT Problem 1 PT Problem #1 Knowledge Deficit PT Goal 1 Goal / Goal Update 1. Pt to be IND with issued HEP Target Visit 10 PT Problem 2 PT Problem #2 Pain PT Goal 1 Goal / Goal Update 1. Pt to report knee pain no greater than 3/10 in the last week 2. Pt to report low back pain no greater than 3/10 in the last week. 3. Pt to decline radicular symptoms in the last week. Target Visit 10 PT Problem 3 PT Problem #3 Impaired Functional Mobility PT Goal 1 Goal / Goal Update 1. Pt to demonstrate a functional lift and carry of 30lb from ground level without an increase in symptoms to simulate carrying in groceries. Target Visit 10 PT Problem 4 PT Problem #4 Impaired Range of Motion PT Goal 1 Goal / Goal Update 1. Pt to improve R knee ROM to 0-120 deg
--- NOTE | 2024-02-13 16:08 | PTOPEVAL1 ---
Assessment and note entered by Jak Epstein, PT, DPT Evaluation Information Assessment Status Evaluation Diagnosis low back and R hip pain ICD-10 Condition Codes (PT) Pain in low back M54.50,Radiculopathy, lumbar region M54.16,Pain in right hip M25.551 Subjective Information Pt reports neck, back, and R knee pain. He reports bad disc in his neck that lead to shooting pain into his shoulder and arm, he is seeing the chiropractor for this. He states he gets pain in his lower back that is excruciating and states it will travel down his R leg. He states he had a R TKA 3 years ago and states that knee has been hurting again for the last year and he knows he has lost ROM. Pt does a lot of sitting for his job. He feels like his knee pain is separate from the radiating pain his has from his lower back. 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 Going to the chiropractor 3-4 times a week. Reported Pain Level Pain Score 0,0: Self Report Assessment PT Clinical Summary Pt presents to therapy today for his initial evaluation with a diagnosis of low back pain and R knee pain. Today he demonstrates both limited knee flexion and extension ROM in his R knee when compared to his L. He demonstrates asymmetric pelvic alignment in supine, this was treated with muscle energy techniques. He ambulates with deviations favoring his R side. Skilled therapy services are indicated to address the deficits noted above, to manage pain, and to report to prior level of function. Plan of Care Interventions Electrical Stimulation,Gait Training,Hot Pack/Cold Pack,Manual Therapy,Neuro Re-education,Patient/ Caregiver Education,Therapeutic Activities, Therapeutic Exercise PT Services Indicated Yes Treatment Frequency and 2x/wk for 10 visits Duration These treatments will address the objective and functional deficits as defined above. The patient will be advanced safely and appropriately in order for the patient to progress towards his/her prior level of function. Additional exercises will be introduced and as well as a comprehensive home exercise program upon discharge, if needed, ?to ensure carryover of functional gains achieved in the clinic. This treatment plan has been reviewed and agreement upon by the patient.
--- NOTE | 2024-03-20 09:03 | OPREHPOC ---
Outpatient Therapy Plan of Care This is a Multidisciplinary Plan of Care that may contain components documented by all disciplines (PT, OT, and ST.) PT Problem 1 PT Problem #1 Knowledge Deficit PT Goal 1 Goal / Goal Update 1. Pt to be IND with issued HEP Target Visit 10 Progress Met PT Problem 2 PT Problem #2 Pain PT Goal 1 Goal / Goal Update 1. Pt to report knee pain no greater than 3/10 in the last week 2. Pt to report low back pain no greater than 3/10 in the last week. 3. Pt to decline radicular symptoms in the last week. 03/19/24: 1-3. all goals met 4. added - Pt to report neck pain no greater than 3/10 in the last week. Target Visit 10 PT Problem 3 PT Problem #3 Impaired Functional Mobility PT Goal 1 Goal / Goal Update 1. Pt to demonstrate a functional lift and carry of 30lb from ground level without an increase in symptoms to simulate carrying in groceries. 03/19/24: 1. progressing Target Visit 10 PT Problem 4 PT Problem #4 Impaired Range of Motion PT Goal 1 Goal / Goal Update 1. Pt to improve R knee ROM to 0-120 deg 03/19/24: 1. progressing 2. added - pt to improve cervical lateral flexion to 40 deg aidan 3. Added - Pt to report no pain with active cervical ROM
--- NOTE | 2024-03-20 09:03 | PTOPPROG ---
Assessment and note entered by Jak Epsetin, PT, DPT Evaluation Information Assessment Status Discharge Diagnosis low back and R hip pain ICD-10 Condition Codes (PT) Pain in low back M54.50,Radiculopathy, lumbar region M54.16,Pain in right hip M25.551 Subjective Information Pt declines any sciatic and radicular pain, also states his knee has loosened up quiet a bit since starting therapy. Pt states his neck pain has not improved, but it was not really the focus of the last round of therapy. He reports limited range of motion, a catching/pinching pain. Gets occasional headaches, declines cervical radicular symptoms. He has been seeing the chiropractor on and off for 10 years for this problem. Assessment PT Clinical Summary Pt presents to therapy today for his progress report following 8 visits of skilled therapy to treat his a diagnosis of low back pain and R knee pain. Both his knee and low back have progressed well. His neck was evaluated today. Upon evaluation he demonstrates decreased cervical ROM in all directions, forward and rounded shoulder, decreased thoracic mobility, and tenderness to palpation at his sub occipitals. Continuation of skilled therapy services are indicated to address the deficits noted above, to improve posture, to manage pain, and to improve functional mobility. Plan of Care Interventions Electrical Stimulation,Gait Training,Hot Pack/Cold Pack,Manual Therapy,Neuro Re-education,Patient/ Caregiver Education,Therapeutic Activities, Therapeutic Exercise PT Services Indicated Yes Treatment Frequency and 2x/wk for 10 visits Duration These treatments will address the objective and functional deficits as defined above. The patient will be advanced safely and appropriately in order for the patient to progress towards his/her prior level of function. Additional exercises will be introduced and as well as a comprehensive home exercise program upon discharge, if needed, ?to ensure carryover of functional gains achieved in the clinic. This treatment plan has been reviewed and agreement upon by the patient.
--- NOTE | 2024-04-10 14:27 | PCPTNOTE ---
Pt. called and cancelled PT this date due to a conflicting appointment with the dentist.
--- NOTE | 2024-04-15 09:22 | PCPTNOTE ---
Patient did not show up for scheduled appointment this date. He has been rescheduled.
--- NOTE | 2024-04-21 16:39 | PTOPDC ---
Assessment and note entered by Jak Epstein, PT, DPT Evaluation Information Assessment Status Discharge Diagnosis low back and R hip pain ICD-10 Condition Codes (PT) Pain in low back M54.50,Radiculopathy, lumbar region M54.16,Pain in right hip M25.551 Subjective Information Pt states it feels like his neck has really improved, he states he still gets of a point that he has to stop or the pain will grab but this is much better. States he has not had any back pain in over a week. States his knee is a bit still, like always. Reports he actually feels really good today. Reported Pain Level Pain Score 0,0: Self Report Assessment PT Clinical Summary Pt presents to therapy today for his progress report following 15 visits of skilled therapy to treat his a diagnosis of low back pain, neck pain, and R knee pain. Pt reports improvements in his knee and low back. Pt has progressed well towards his therapy goals and no longer requires skilled services, will be discharged at this time. His HEP was progressed as well as a handout given about office setup. Plan of Care PT Services Indicated No
--- NOTE | 2024-04-21 16:39 | OPREHPOC ---
Outpatient Therapy Plan of Care This is a Multidisciplinary Plan of Care that may contain components documented by all disciplines (PT, OT, and ST.) PT Problem 1 PT Problem #1 Knowledge Deficit PT Goal 1 Goal / Goal Update 1. Pt to be IND with issued HEP Target Visit 10 Progress Met PT Problem 2 PT Problem #2 Pain PT Goal 1 Goal / Goal Update 1. Pt to report knee pain no greater than 3/10 in the last week 2. Pt to report low back pain no greater than 3/10 in the last week. 3. Pt to decline radicular symptoms in the last week. 03/19/24: 1-3. all goals met 4. added - Pt to report neck pain no greater than 3/10 in the last week. 04/21/24: 1-4. all goals met Target Visit 10 Progress Met PT Problem 3 PT Problem #3 Impaired Functional Mobility PT Goal 1 Goal / Goal Update 1. Pt to demonstrate a functional lift and carry of 30lb from ground level without an increase in symptoms to simulate carrying in groceries. 03/19/24: 1. progressing Target Visit 10 PT Problem 4 PT Problem #4 Impaired Range of Motion PT Goal 1 Goal / Goal Update 1. Pt to improve R knee ROM to 0-120 deg 03/19/24: 1. progressing 2. added - pt to improve cervical lateral flexion to 40 deg aidan 3. Added - Pt to report no pain with active cervical ROM Progress Partially Met
== END 2024-04-22 07:58 | disposition home or self-care (01) ==
LOC: ANHGOSHPT 15:45
PROVIDERS: PCP Internal Medicine; Visit Provider Internal Medicine
DX: M54.2 Cervicalgia (principal); M54.50 Low back pain, unspecified
CPT/HCPCS: 97016; 97110; 97140; 97161; 97164; 97530

== ENCOUNTER 2024-07-24 09:11 | Outpatient (CLI) | payer MEDICARE, SELFPAY ==
--- OUTSIDE RECORDS SUMMARY | 2024-07-24 09:15 | XMS_ITS | Continuity of Care Document ---
Author Organization [facility] Address [address] [place] [address] Phone Care Team Providers Care Clinical Research Physician Name Role Phone Gustavo Morales DO Unavailable Unavailable Advance Directives Directive Yes / No Effective Date File Name No Information Encounters Encounter Description Practice Location Reason(s) For Visit Diagnoses Date Provider Providers Copied on Encounter [facility], [address], [place], [place], [id number], [place] tel:[phone] [facility] No Information Carmen Narayan. [address] [place], [address], [place]. tel: [phone] Family History Family Member Type Diagnosis Age At Onset No Information Payers Payer name Insurance type Covered republican ID Authoriza tion(s) No Information Social History Type Description Quantity Date Captured Comments Sex Male Smoking Status No Information Chief Complaint And Reason For Visit No Information Reason For Referral Reason For Referral No Information History Of Present Illness Encounter Date Complaint History Of Prese nt Illness No Information Functional Status Date Functional Assessmen t No Information Instructions Date Instruction Additional Infor mation No Information Assessments Type Assessment Date No Information Patient Care Teams Name Effective Dates (start - stop) Status Members No Information
--- OUTSIDE RECORDS SUMMARY | 2024-07-24 09:16 | XMS_ITS | Encounter Summary ---
Author Organization [facility] Address [address] [place] [address] Phone Care Team Providers Care Merchandise Pickup/Receiving Associate Name Role Phone Chico Page MD Primary Care Provider [phone] Encounter Details Date Type Department Care Team (Late st Contact Info) Description 07/15/2024 Telephone [facility] Cardiology [address] [facility] [address] [place] [address] [place] [address] Craig May, ALEXEI [address] [facility] [address] [place] [address] Social History Tobacco Use Types Packs/Day Years Used Date Smoking Tobacco: Never Smokeless Tobacco: Never Personal Safety Answer Date Recorded Have you ever been in or are you currently in a harmful physical or emotional relationship or is someone making you feel afraid or unsafe? 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 documented in this encounter Plan of Treatment Not on file documented as of this encounter Visit Diagnoses Not on filedocumented in this encounter Care Teams Merchandise Pickup/Receiving Associate Relationship Specialty Start Date End Date Chico Paeg MD PCP - General Family Medicine 04/18/22 documented as of this encounter
--- OUTSIDE RECORDS SUMMARY | 2024-07-24 09:16 | XMS_ITS | Clinical Summary ---
Author Organization [facility] Address [address] [place] [address] Care Team Providers Care Liquid Chlorine Operator Name Role Phone Chico Page MD Primary Care Provider [phone] Allergies Active Allergy Reactions Criticality Noted Date Comments Sulfa (Sulfonamide Antibiotics) Rash,Blisters High 12/13/2015 Reaction: RASH, Medications atorvastatin (LIPITOR) 20 mg tablet TK 1 T PO QD 3 07/18/2017 Active garlic 500 mg capsule 2000mg daily Active amoxicillin 500 mg capsule 08/16/2021 Active clobetasoL (TEMOVATE) 0.05 % cream 10/26/2021 Active furosemide (LASIX) 20 mg tablet Take 1 tablet (20 mg total) by mouth as needed (for swelling.) 11/16/2023 Active dilTIAZem XR (CARDIZEM CD,DILACOR XR) 120 mg 24 hr capsuleIndicatio ns:Ventricular Rate Control in Atrial Fibrillation,hyp ertension Take 1 capsule (120 mg total) by mouth daily 90 capsule 3 11/20/2023 Active Eliquis 5 mg tablet TAKE 1 TABLET BY MOUTH 2 TIMES A DAY 180 tablet 3 03/14/2024 Active dapagliflozin propanediol (Farxiga) 10 mg tablet TAKE 1 TABLET(10 MG) BY MOUTH DAILY 90 tablet 06/09/2024 Active Active Problems Problem Noted Date Diagnosed Date Anticoagulation adequate 12/05/2022 (HFpEF) heart failure with preserved ejection fr action 10/27/2022 Assessment & Plan (11/16/2023 10:52 AM CDT): Chronic HFpEF. Euvolemic upon examination. Currently taking Lasix on as needed basis. Denies any fluid retention while being off Lasix. Continue adequate blood pressure and heart rate control. Continue Jardiance. Can take the Lasix on as needed basis. Pre-operative cardiovascular examination 021 Assessment & Plan (07/16/2020 11:08 AM CDT): Mr. Gallagher is currently medically optimized to undergo a moderate risk surgery which is anticipated in October. We will repeat an EKG today to have a recent 1 to compare to. His RCRI score is 0. He can perform > 4 METS of activity. Dyspnea on exertion 02/28/2019 Assessment & Plan (02/28/2019 11:50 AM MESSENGER COPY): This has been stable, but with his finding of dilated pulmonary artery and abnormal ECG in clinic, will plan on getting a resting TTE. 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 Continue atorvastatin 20 milligrams daily. Assessment & Plan (10/28/2021 8:31 AM CDT): His lipid panel is under acceptable control for his risk factors. We will continue atorvastatin 20 mg daily. We will give him a script to recheck his lipid panel. Assessment & Plan (07/16/2020 11:07 AM CDT): He continues on atorvastatin 20 mg daily due to his ASCVD risk. His last LDL checked a year ago was 64. We will repeat a lipid panel. Assessment & Plan (02/28/2019 11:52 AM MESSENGER COPY): His LDL was 78 and 2016. He continues to take atorvastatin 20 mg daily. He declines lab draw today and reports lipid panel and CMP is ordered through [facility] by his PCP. We will request that he have these records sent to our office for review. Assessment & Plan (04/12/2018 11:41 AM MESSENGER COPY): No recent lipids - Will check lipid panel - Continue atorvastatin 20mg daily Hypertension 10/13/2016 Assessment & Plan (11/16/2023 10:53 AM CDT): Blood pressure slightly above goal today. Well controlled at home. Admits that blood pressure is typically about 10 points higher when at doctor's appointments. Continue current dose of diltiazem. Assessment & Plan (10/28/2021 8:31 AM CDT): Recheck blood pressure was 122/80. He reports relatively normal blood pressure results at home. We will continue Dilt extended release 180 mg daily as well as lisinopril 5 mg daily. We have advised him to continue monitoring his blood pressure at home. We will give him a script to have his BMP checked. Assessment & Plan (07/16/2020 11:05 AM CDT): He has a history of hypertension which is well controlled on his current regimen of diltiazem extended release 180 and lisinopril 5 mg daily. We will repeat a CMP. Otherwise we will make no changes. Assessment & Plan (02/28/2019 11:50 AM MESSENGER COPY): Blood pressure is at goal we will continue medications as listed. Assessment & Plan (04/12/2018 11:40 AM MESSENGER COPY): Well controlled. - Continue lisinopril 2.5mg BID - Check CMP Persistent atrial fibrillation 04/05/2016 Overview (04/08/2018): Paroxysmal atrial fibrillation on Eliquis. Assessment & Plan (11/16/2023 10:55 AM CDT): History of persistent atrial fibrillation. He is following closely with EP. Is reporting some fatigue similar to what he experienced when on higher doses of diltiazem in the past. He is interested in trying a lower dose to see if this improves. Currently feels as if his AFib is well controlled. Denies any bleeding issues while on Eliquis. Will discuss with EP about dropping diltiazem XR 220 milligrams daily to assess for improvement in fatigue. Will need close monitoring of worsening AFib. Continue Eliquis for stroke prophylaxis. Assessment & Plan (10/28/2021 8:32 AM CDT): He is in atrial fibrillation on physical examination today. He is entirely asymptomatic and is appropriately rate controlled. We will continue diltiazem extended release 180 mg daily and apixaban 5 mg b.i.d.. Assessment & Plan (07/16/2020 11:06 AM CDT): He has a history of paroxysmal atrial fibrillation. He is on apixaban and has a CHADSvasc of 1. He is in sinus rhythm on physical exam. He is asymptomatic from a atrial fibrillation perspective. We will make no changes. Assessment & Plan (02/28/2019 11:50 AM MESSENGER COPY): He is normal sinus rhythm with PACs today. He continues to tolerate diltiazem for rate control and Eliquis for anticoagulation. Assessment & Plan (04/12/2018 11:40 AM MESSENGER COPY): Paroxysmal. 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 He has no associated cerebral or aortic aneurysms. This is his a low-pressure system, the chance of rupture is not significant. Assessment & Plan (02/28/2019 11:51 AM MESSENGER COPY): TTE ordered to evaluate abnormal ECG and dyspnea on exertion. Will look for evidence of elevated PA pressures or PI that may be related to a dilated PA. Encounters Date Type Department Care Team Description 07/15/2024 Telephone [facility] Cardiology [address] [facility] 8[address] [place] [address] [place] [address] Craig May NP from Last 3 Months Immunizations Immunization Administration Dates Next Due Influenza, Unspecified 12/03/2017 Surgical History Surgery Date Site/Laterality Comments KNEE SURGERY Knee Surgery - (Added by TW Conv) PROSTATE SURGERY Prostate Surgery - (Added by TW Conv) SD NEPHROLITHOTOMY REMOVAL CALCULUS Lithotomy - (Added by TW Conv) SD RPLCMT PROST AORTIC VALVE OPEN XCP HOMOGRF/STENT Aortic Valve Replacement - (Added by TW Conv) REPLACEMENT TOTAL KNEE 03/05/2011 - 03/04/2012 Left SHOULDER SURGERY 03/05/2015 - 03/04/2016 Left Medical History Medical History Date Comments Personal history of other di seases of the circulatory system History of atrial fibrillati on - (Added by TW Conv) Personal history of other di seases of the circulatory system History of hypertension - (A dded by TW Conv) Atrial fibrillation (HCC) Chest pain Gastric reflux Hypertension Osteoarthritis Kidney stones High cholesterol Family History Medical History Relation Name Comments Heart disease Brother 1 Family history of cardiac disorder - (Added by TW Conv) Hypertension Brother 2 Family history of hypertension - (Added by TW Conv) COPD Father Family history of chronic obstructive pulmonary disease - (Added by TW Conv) Heart disease Father Family history of cardiac disorder - (Added by TW Conv) Hypertension Father Family history of hypertension - (Added by TW Conv) Stroke Maternal Grandmother Stroke Mother Family history of cerebrovascular accident (CVA) - (Added by TW Conv) Cancer Sister 1 Family history of malignant neoplasm - (Added by TW Conv) Arthritis Sister 2 Family history of arthritis - (Added by TW Conv) Relation Name Status Comments Brother 1 Brother 2 Father Maternal Grandmother Mother Sister 1 Sister 2 Social History Tobacco Use Types Packs/Day Years Used Date Smoking Tobacco: Never Smokeless Tobacco: Never Tobacco Cessation:Counseling Given: Not Answered Personal Safety Answer Date Recorded Have you ever been in or are you currently in a harmful physical or emotional relationship or is someone making you feel afraid or unsafe? 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 on fi le Obstetrics History Last Filed Vital Signs Vital Sign Reading Time Taken Comments Blood Pressure 132/79 12/19/2023 9:48 AM CDT Pulse 63 12/19/2023 9:48 AM CDT Temperature 36.5 C (97.7 F) 12/05/2022 12:18 PM CDT Respiratory Rate 19 10/26/2022 8:50 AM CDT Oxygen Saturation 97% 12/19/2023 9:48 AM CDT Inhaled Oxygen Concentration - - Weight 100.2 kg (221 lb) 12/19/2023 9:48 AM CDT Height 177.8 cm (5' 10 ) 12/19/2023 9:48 AM CDT Body Mass Index 31.71 12/19/2023 9:48 AM CDT Plan of Treatment Health Maintenance Due Date Last Done Comments Colon Cancer Screening-Colonoscopy 1957 Depression Screening 1957 Hepatitis C Screening 1957 Prostate Cancer Screening-PSA 1957 DTaP/Tdap/Td Vaccine (1 - Tdap) 1968 Hepatitis B Screening 1975 Pneumococcal vaccine 65+ (1 of 2 - PCV) 1976 Zoster Vaccine (1 of 2) 2007 Well Visit 65+ 2022 Fall Risk Assessment 10/27/2023 10/26/2022 Influenza Vaccine (Season Ended) 2024 11/11/2018, 01/15/2018, 12/03/2017 Insurance [employer]ET[employer] [facility] PPO [facility] CHOICE PL[facility] H[facility]/PPO Address: [address] [address] [place] [address] [facility] MEDICARE MEDICARE [facility] MEDICARE [facility]ICARE [facility] [phone] (Work) [id number] [place] [id number] Care Teams Liquid Chlorine Operator Relationship Specialty Start Date End Date Chico Page MD PCP - General Family Medicine 04/18/22
--- OUTSIDE RECORDS SUMMARY | 2024-07-24 09:16 | XMS_ITS | Referral Summary ---
Author Organization [facility] Address [address] [place] [address] Care Team Providers Care Greenhouse Worker Name Role Phone Chico Page MD Primary Care Provider [phone] Encounters Date Type Department Care Team Description 07/15/2024 Telephone [facility] Cardiology [address] [place] [address] [place] [address] Craig May NP from Last 3 Months Allergies Active Allergy Reactions Criticality Noted Date [...] 02/28/2019 Assessment & Plan (02/28/2019 11:50 AM PARTY PLAN DEMONSTRATOR): This has been stable, but with his [...] panel. Assessment & Plan (02/28/2019 11:52 AM PARTY PLAN DEMONSTRATOR): His LDL was 78 and 2016. He continues to take atorvastatin 20 mg daily. He declines lab draw today and reports lipid panel and CMP is ordered through [facility] by his PCP. We will request that he have these records sent to our office for review. Assessment & Plan (04/12/2018 11:41 AM PARTY PLAN DEMONSTRATOR): No recent lipids - Will check lipid [...] changes. Assessment & Plan (02/28/2019 11:50 AM PARTY PLAN DEMONSTRATOR): Blood pressure is at goal we will continue medications as listed. Assessment & Plan (04/12/2018 11:40 AM PARTY PLAN DEMONSTRATOR): Well controlled. - Continue lisinopril 2.5mg BID [...] changes. Assessment & Plan (02/28/2019 11:50 AM PARTY PLAN DEMONSTRATOR): He is normal sinus rhythm with PACs today. He continues to tolerate diltiazem for rate control and Eliquis for anticoagulation. Assessment & Plan (04/12/2018 11:40 AM PARTY PLAN DEMONSTRATOR): Paroxysmal. Currently in sinus - Continue cartia [...] significant. Assessment & Plan (02/28/2019 11:51 AM PARTY PLAN DEMONSTRATOR): TTE ordered to evaluate abnormal ECG and dyspnea on exertion. Will look for evidence of elevated PA pressures or PI that may be related to a dilated PA. 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
[2024-07-24 11:42] LABS: Basophils Percent Auto 0.5 % (0.2-1.2); Eosinophils Absolute Auto 0.1 K/mm3 (0-0.3); Hematocrit 53.2 % (42.0-52.0); Hemoglobin 17.3 g/dL (14.0-18.0); Immature Granulocyte Absolute 0.06 K/mm3 (0.00-0.031); Immature Granulocyte Percent A 0.7 % (0-0.5); Lymphocytes Absolute Auto 2.19 K/mm3 (0.9-3.2); Lymphocytes Percent Auto 26.1 % (18.3-44.2); Mean Corpuscular HGB Conc 32.5 g/dl (32-36); Mean Corpuscular Hemoglobin 30.3 pg (26-34); Mean Corpuscular Volume 93.2 fl (80-100); Monocytes Absolute Auto 0.8 K/mm3 (0.1-0.6); Monocytes Percent Auto 9.5 % (2.6-8.5); Neutrophils Absolute Auto 5.2 K/mm3 (1.3-6.7); Neutrophils Percent Auto 62.2 % (45.5-73.1); Platelet Count Result 285 k/mm3 (150-375); Red Blood Count 5.71 M/mm3 (4.6-6.20); Red Cell Distribution Width 12.7 % (11.5-14.5); White Blood Count 8.4 K/mm3 (4.5-10.0)
[2024-07-24 11:58] LABS: Alanine Aminotransferase 33 U/L (6-50); Albumin Level 4.8 g/dL (3.5-5.1); Alkaline Phosphatase 84 U/L (38-126); Anion Gap 11 mmol/L (4-12); Aspartate Amino Transferase 44 U/L (17-59); Bilirubin,Total 0.7 mg/dL (0.2-1.3); Blood Urea Nitrogen 20 mg/dL (9-20); Calcium 9.6 mg/dL (8.4-10.2); Carbon Dioxide 27 mmol/L (22-30); Chloride 105 mmol/L (98-107); Estimated Glomerular Filt Rate > 60; Glucose 92 mg/dL (65-110); Potassium 4.5 mmol/L (3.4-5.0); Sodium 143 mmol/L (137-145)
[2024-07-24 12:16] LABS: Creatinine Urine 25.7 mg/dL
[2024-07-24 12:25] LABS: MALB Creatinine Ratio < 23.3 mg/g (0-30); Microalbumin Urine Random < 6.0 mg/L (0-16.7)
== END 2024-07-24 09:12 | disposition home or self-care (01) ==
PROVIDERS: PCP Internal Medicine; Visit Provider Internal Medicine
DX: I48.91 Unspecified atrial fibrillation (principal); E11.9 Type 2 diabetes mellitus without complications; I10 Essential (primary) hypertension
CPT/HCPCS: 36415; 80053; 82043; 83036; 85025

== ENCOUNTER 2025-02-23 07:29 | Outpatient (CLI) | payer MEDICARE, SELFPAY ==
--- NOTE | ~2025-02-23 | XR_ITS ---
XR abdomen/kub 1V 02/23/2025 07:55 INDICATION: Renal stone TECHNIQUE: KUB COMPARISON: None There are multiple bilateral renal stones. Bowel gas pattern nonobstructive. There is moderate osteoarthritis of the hips. There is moderate lumbar spondylosis. Lung bases unremarkable. Severe lumbar spondylosis with prominent bulky osteophytes marginally. Moderate osteoarthritis of the hips. IMPRESSION: 1: Bilateral nephrolithiasis. Reviewed, dictated and finalized at location O. TRY SALES MANAGER
== END 2025-02-23 07:30 | disposition home or self-care (01) ==
PROVIDERS: PCP Internal Medicine; Visit Provider Urology
DX: N20.0 Calculus of kidney (principal)
CPT/HCPCS: 74018